=== PATIENT | female | born 1990 | race African-American/Black ===

== ENCOUNTER 2018-07-06 13:34 | Emergency (ER) | payer MEDICAID ==
[~2018-07-06] VITALS: Ht 172.7 cm; Wt 117.9 kg
[2018-07-06] MEDS ORDERED: Lidocaine 2% Visc 15ml soln ORAL ONE (14:00)
[2018-07-06] MEDS ORDERED: Tylenol #3 tab (300mg/30mg) ORAL ONE (14:00)
[2018-07-06] MEDS ORDERED: Dexamethasone 4mg/ml vial IM ONE (14:00)
--- NOTE | 2018-07-06 15:05 | Emergency Room Report ---
History of Present Illness General Chief Complaint: Upper Respiratory Illness Source: Patient Present Illness HPI 27-year-old female presents to the emergency department complaining of 10 out of 10 in severity sore throat, rhinorrhea and nasal congestion 2 days. Patient reports subjective chills she denies fevers she states she's been taking Motrin for her pain. Patient denies recent ill contacts. She denies cough. Reports pain is exacerbated upon swallowing she reports some changes to her voice. Denies wheezing, SOB, CP, neck pain or stiffness, denies photophobia. Allergies: Coded Allergies: No Known Allergies (Unverified , 07/06/18) Patient History Past Medical History: see triage record Past Surgical History: none Pertinent Family History: none Last Menstrual Period: 06/14/18 Now: No Reviewed Nursing Documentation: PMH: Agreed; PSxH: Agreed Nursing Documentation-PMH Past Medical History: No Stated History Hx Asthma: Yes Review of Systems All Other Systems: negative except mentioned in HPI Physical Exam Vital Signs Date Time Temp Pulse Resp B/P (MAP) Pulse Ox O2 Delivery O2 Flow Rate FiO2 07/06/18 13:37 98.3 98 20 118/89 98 Room Air 98.2 Sp02 EP Interpretation: reviewed, normal General Appearance: alert, GCS 15, non-toxic, mild distress Head: normocephalic, atraumatic Eyes: bilateral eye normal inspection, bilateral eye PERRL ENT: hearing grossly normal, normal voice, TMs + canals normal, uvula midline, moist mucus membranes, nasal congestion, tonsillar swelling, pharyngeal erythema , other Neck: full range of motion Respiratory: chest non-tender, lungs clear, normal breath sounds, no respiratory distress, no wheezing, speaking full sentences Cardiovascular #1: regular rate, rhythm Musculoskeletal: back normal, gait/station normal, normal range of motion, non- tender Neurologic: alert, oriented x3, responsive, motor strength/tone normal, sensory intact, normal gait, speech normal, grossly normal Psychiatric: judgement/insight normal Skin: normal color, no rash, warm/dry, well hydrated Lymphatic: no adenopathy Medical Decision Making PA Attestation Dr. Villa is my supervising Physician whom patient management has been discussed with. Diagnostic Impression: Primary Impression: Pharyngitis, acute Qualified Codes: J02.0 - Streptococcal pharyngitis Additional Impressions: Nasal congestion with rhinorrhea Post-nasal drainage ER Course 27-year-old female presents to the emergency department complaining of 10 out of 10 in severity sore throat, rhinorrhea and nasal congestion 2 days. Patient reports subjective chills she denies fevers she states she's been taking Motrin for her pain. Patient denies recent ill contacts. She denies cough. Reports pain is exacerbated upon swallowing she reports some changes to her voice. Denies wheezing, SOB, CP, neck pain or stiffness, denies photophobia. Ddx considered but are not limited to: pharyngitis, strep, RN OPERATING ROOM, ludwigs angina, URI Vital signs: are WNL, pt. is afebrile H&PE are most consistent with: pharyngitis presumed strep. ORDERS: Xray [address] Neck: no evidence of Abscess, Normal- Per official radiology report- Please see report for specific details. ED INTERVENTIONS: - Decadron 8mg IM -Tylenol #3 PO -Lidocaine Viscous PO d/w pt. conservative treatment, and to follow up with a primary care provider. pt given a list of primary care clinics for follow up. d/w pt. to return to the ED with worsening or new symptoms. DISCHARGE: At this time pt. is stable for d/c to home. Will provide printed patient care instructions, and any necessary prescriptions. Care plan and follow up instructions have been discussed with the patient prior to discharge. Last Vital Signs Date Time Temp Pulse Resp B/P (MAP) Pulse Ox O2 Delivery O2 Flow Rate FiO2 07/06/18 14:17 98.3 07/06/18 13:40 98 20 Room Air 07/06/18 13:37 118/89 98 Disposition: HOME, SELF-CARE Condition: Stable Scripts Lidocaine HCl 2% Viscous (Lidocaine HCl 2% Viscous) 100 Ml Solution 15 ML ORAL QID, #200 ML Prov: Mayra Root 07/06/18 Oxymetazoline HCl (Afrin) 15 Ml Mahomet 2 SPRAYS NASAL TWICE A DAY, #30 SPRAY DO NOT USE FOR MORE THAN 3 CONSECUTIVE DAYS. Prov: Mayra Root 07/06/18 Ibuprofen* (MOTRIN*) 600 Mg Tablet 600 MG ORAL THREE TIMES A DAY, #20 TAB 0 Refills Prov: Mayra Root 07/06/18 Amoxicillin/Potassium Clav 875-125* (AUGMENTIN 875-125 TABLET*) 1 Each Tablet 1 TAB ORAL TWICE A DAY for 10 Days, #20 TAB Prov: Mayra Root 07/06/18 Referrals: NON PHYSICIAN (PCP) Patient Instructions: Pharyngitis, [id number] Additional Instructions: Take medications as directed. Follow up with a Primary Care Provider in 3-5 days, even if your symptoms have resolved. --Please review list of primary care clinics, if you do not already have a primary care provider Return sooner to ED if new symptoms occur, or current symptoms become worse. - Please note that this Emergency Department Report was dictated using [employer]mechanical engineering technician technology software, occasionally this can lead to erroneous entry secondary to interpretation by the dictation equipment. Mayra Root Jul 06, 2018 15:05
[2018-07-06] MEDS ORDERED: LIDOCAINE VISC100 ML ORAL (15:36)
[2018-07-06] MEDS ORDERED: IBUPROFEN600 MG ORAL (15:36)
[2018-07-06] MEDS ORDERED: AFRIN NASAL SPR30 ML NASAL (15:36)
[2018-07-06] MEDS ORDERED: AUGMENTIN 875-1 EAC1 ORAL (15:36)
[2018-07-06] MEDS ORDERED: Augmentin 875mg Tab ORAL ONE (15:45)
[2018-07-06 15:47] VITALS: BP 118/89
--- NOTE | 2018-07-06 15:55 | Diagnostic Imaging Report ---
Indication: Pain Technique: 2 views of the neck with soft tissue technique Comparison: none Findings: No prevertebral soft tissue swelling. No epiglottic swelling or glottic narrowing or hypopharyngeal distention. No radiopaque foreign body. Bones appear unremarkable Impression: Negative
== END 2018-07-06 16:21 | disposition home or self-care (01) ==
LOC: EMR 14:00
DX: J34.89 Other specified disorders of nose and nasal sinuses (principal); R09.81 Nasal congestion; R09.82 Postnasal drip
CPT/HCPCS: 70360; 96372; 99284; J1100

== ENCOUNTER 2020-12-24 03:54 | Emergency (ER) | payer SELFPAY ==
[~2020-12-24] VITALS: Ht 172.7 cm; Wt 117.9 kg
[~2020-12-24 03:54] MED LIST: AFRIN NASAL SPR30 ML NASAL; AUGMENTIN 875-1 EAC1 ORAL; IBUPROFEN600 MG ORAL; LIDOCAINE VISC100 ML ORAL
[2020-12-24] MEDS ORDERED: ALBUTEROL SULF8.5 G1 INH (04:08)
[2020-12-24] MEDS ORDERED: Ketorolac 60mg Inj IM ONE (04:15)
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
[2020-12-24] MEDS ORDERED: NAPROXEN250 MG ORAL (04:29)
[2020-12-24] MEDS ORDERED: Ketorolac 30mg Inj ONE (04:31)
[2020-12-24 05:00] VITALS: BP 140/94
--- NOTE | 2020-12-24 05:00 | NUR ---
ER DISCHARGE NOTE: Patient is cleared to be discharged per ERMD, pt is aox4, on room air, with stable vital signs. pt was given dc and prescription instructions, pt was able to verbalize understanding, pt id band removed without complications. pt is able to ambulate with steady gait. pt took all belongings.
--- NOTE | 2020-12-24 05:03 | Diagnostic Imaging Report ---
EXAM: XR Right Knee, 3 Views CLINICAL HISTORY: PAIN TECHNIQUE: Three views of the right knee. COMPARISON: No relevant prior studies available. FINDINGS: Bones/joints: Unremarkable. No acute fracture. No dislocation. Soft tissues: Unremarkable. IMPRESSION: No fracture. No definite joint effusion.
--- NOTE | 2020-12-24 05:04 | Diagnostic Imaging Report ---
EXAM: XR Right Wrist Complete, 3 or More Views CLINICAL HISTORY: PAIN TECHNIQUE: Frontal, lateral and oblique views of the right wrist. COMPARISON: No relevant prior studies available. FINDINGS: Bones/joints: Unremarkable. No acute fracture. No dislocation. Soft tissues: Unremarkable. No radiopaque foreign body. IMPRESSION: No fracture.
== END 2020-12-24 05:00 | disposition home or self-care (01) ==
LOC: EMR 04:20
DX: M25.561 Pain in right knee (principal); M25.531 Pain in right wrist; Y04.8XXA Assault by other bodily force, initial encounter; Y92.9 Unspecified place or not applicable
CPT/HCPCS: 29125; 73100; 73560; 96372; 99284; J1885

== ENCOUNTER 2021-01-05 08:52 | Emergency (ER) | payer SELFPAY ==
[~2021-01-05] VITALS: Ht 172.7 cm; Wt 117.9 kg
[~2021-01-05 08:52] MED LIST changes: +ALBUTEROL SULF8.5 G1 INH; +NAPROXEN250 MG ORAL
[2021-01-05 08:57] VITALS: BP 135/94
--- NOTE | 2021-01-05 09:13 | Emergency Room Report ---
History of Present Illness General Chief Complaint: Lower Extremity Injury Source: Patient Present Illness HPI Patient is a 30-year-old female who presents for increased right knee pain. Reports having increased pain over the last 2 weeks after a fall. Denies any fever. Denies any chance of being . Had not been vomiting or having diarrhea. Denies any other recent trauma. Reports having intermittent swelling episodes. Denies any other joint pain. Reports of increased popping. Some pain to the anterior portion of the knee. Allergies: Coded Allergies: No Known Allergies (Unverified , 07/06/18) COVID-19 Screening Contact w/high risk pt: No Experienced COVID-19 symptoms?: No COVID-19 Testing performed TELECOM ENGINEER: Yes COVID-19 Screening: Negative COVID-19 COVID-19 Testing Source: 07/2020 Patient History Past Medical History: see triage record Last Menstrual Period: on her period Now: No Reviewed Nursing Documentation: PMH: Agreed; PSxH: Agreed Nursing Documentation-PMH Past Medical History: No History, Except For Hx Asthma: Yes Review of Systems All Other Systems: negative except mentioned in HPI Physical Exam Vital Signs Date Time Temp Pulse Resp B/P (MAP) Pulse Ox O2 Delivery O2 Flow Rate FiO2 01/05/21 08:57 98.8 95 20 135/94 (108) 97 Room Air General Appearance: well appearing, no apparent distress, alert, GCS 15 Head: normocephalic, atraumatic ENT: hearing grossly normal, normal voice Neck: full range of motion, supple Respiratory: no respiratory distress, speaking full sentences Cardiovascular #1: normal inspection Gastrointestinal: normal inspection Musculoskeletal: normal inspection, no calf tenderness, other - Slight laxity on anterior drawer, slight medial joint line tenderness, no medial collateral laxity, no pain with grind tests Neurologic: normal gait Psychiatric: mood/affect normal Skin: no rash Medical Decision Making Diagnostic Impression: Primary Impression: Right knee sprain ER Course Patient presents for right-sided knee pain. Differential diagnosis include was not limited to knee sprain, meniscal injury, arthritis among others. Patient has a benign exam and does not appear to require laboratory testing at this time. Patient was given pain medications. X-ray imaging showed no evidence of acute fracture. Patient will be discharged home. She was advised to follow-up with primary care physician for recheck. She is given prescription for Voltaren gel as well as Tylenol. Patient was advised to return if she began having any worsening condition or other concerns. She is advised to rest the knee and to continue icing. She advised that she may need MRI if symptoms persist or w ilya. This medical record is generated with [employer] dairy tester software. There may be some dairy tester discrepancies related to use of this software Last Vital Signs Date Time Temp Pulse Resp B/P (MAP) Pulse Ox O2 Delivery O2 Flow Rate FiO2 01/05/21 08:57 98.8 95 20 135/94 (108) 97 Room Air Status: improved Disposition: HOME, SELF-CARE Condition: Stable Scripts Acetaminophen* (ACETAMINOPHEN EXTRA STRENGTH*) 500 Mg Tablet 500 MG ORAL Q8H PRN for Fever/Headache/Mild Pain, #30 TAB Prov: Manolo Villa MD 01/05/21 Diclofenac Sodium (VOLTAREN) 100 Gm Gel..gram. 5 GM TP TWICE A DAY, #100 GM Prov: Manolo Villa MD 01/05/21 Referrals: NON PHYSICIAN (PCP) Manolo Villa MD Jan 05, 2021 09:12
[2021-01-05] MEDS ORDERED: ACETAMINOPHEN500 M3 ORAL (09:15)
[2021-01-05] MEDS ORDERED: VOLTAREN100 G1 TP (09:15)
[2021-01-05] MEDS: Diclofenac 1% Gel 100gm TOPIC ONE (09:27)
--- NOTE | 2021-01-05 09:33 | NUR ---
ER DISCHARGE NOTE: Patient is cleared to be discharged per ERMD, pt is aox4, on room air, with stable vital signs. pt was given dc and prescription instructions, pt was able to verbalize understanding. placed cream to knee and desiree wrap. pt is able to ambulate with steady gait. pt took all belongings.
--- NOTE | 2021-01-05 10:17 | Diagnostic Imaging Report ---
Indication: Pain, status post fall Technique: 3 views of the right knee Comparison: None Findings: No acute fracture. No dislocation. The joint spaces are preserved Impression: Negative
== END 2021-01-05 09:33 | disposition home or self-care (01) ==
LOC: EMR 09:08
DX: S83.91XA Sprain of unspecified site of right knee, initial encounter (principal); J45.909 Unspecified asthma, uncomplicated; W01.0XXA Fall on same level from slipping, tripping and stumbling without subsequent striking against object, initial encounter; Y93.9 Activity, unspecified; Y92.9 Unspecified place or not applicable; Z79.899 Other long term (current) drug therapy
CPT/HCPCS: 99283